=== PATIENT | male | born 1965 | race Two or more races ===

== ENCOUNTER → 2022-07-31 | Outpatient (CLI) | payer MEDICAID | END | disposition home or self-care (01) | LOC: Rad HDHVI 15:12 | PROVIDERS: ATTEND Internal Medicine Cardiovascular Disease | DX: I07.1 Rheumatic tricuspid insufficiency (principal); R06.02 Shortness of breath | CPT/HCPCS: 93306 ==

== ENCOUNTER → 2022-08-20 | Outpatient (CLI) | payer MEDICAID ==
[~2022-08-20] VITALS: Ht 167.6 cm; Wt 86.2 kg
[~2022-08-20] MED LIST: ADENOSINE 72 MG in GIVE UN-DILUTED 0 ML IV ONE; ADENOSINE 90 MG/30 ML INJ IV ONE
== END | disposition home or self-care (01) ==
LOC: Rad HDHVI 13:14
PROVIDERS: ATTEND Internal Medicine Cardiovascular Disease
DX: I11.0 Hypertensive heart disease with heart failure (principal); I50.43 Acute on chronic combined systolic (congestive) and diastolic (congestive) heart failure; I48.0 Paroxysmal atrial fibrillation; R06.02 Shortness of breath
CPT/HCPCS: 78452; 93005; 96374; 96375; A9500; J0153

== ENCOUNTER → 2024-02-03 | Outpatient (CLI) | payer MEDICAID ==
[~2024-02-03] MED LIST changes: -ADENOSINE 72 MG in GIVE UN-DILUTED 0 ML IV ONE; -ADENOSINE 90 MG/30 ML INJ IV ONE; +APIX5TAB PO; +CLOP75TA28 PO; +FURO40TA4 PO; +LOSA-533 PO; +METO25TA93 PO; +OMEG1400 PO; +SPIR25TA8 PO
[2024-02-03 12:30] VITALS: BP 151/88; PULSE 82; RESP 16; O2SAT 99
[2024-02-03 12:41] VITALS: BP 138/90; PULSE 113; RESP 16; O2SAT 99
== END | disposition home or self-care (01) ==
LOC: Rad HDHVI 12:02
PROVIDERS: ATTEND Internal Medicine Cardiovascular Disease
DX: Z01.818 Encounter for other preprocedural examination (principal); R07.89 Other chest pain; I48.91 Unspecified atrial fibrillation; R94.31 Abnormal electrocardiogram [ECG] [EKG]
CPT/HCPCS: 71046; 93005; G0463

== ENCOUNTER 2024-02-06 07:28 | Day surgery (SDC) | payer MEDICAID ==
[2024-02-03 14:49] LABS: Basophils # (auto) 0.1 10 ^3/uL (0-0.2); Basophils % (auto) 0.6 % (0.0-2.0); Eosinophils # (auto) 0.3 10 ^3/uL (0-0.8); Eosinophils % (auto) 2.7 % (0.0-7.0); Hemoglobin 14.4 g/dL (13.5-17.5); Lymphocytes # (auto) 2.6 10 ^3/uL (0.4-5.4); Lymphocytes % (auto) 21.4 % (10.0-50.0); Mean Corpuscular Hemoglobin 32.8 pg (28.0-32.0); Mean Corpuscular Hgb Conc. 34.2 g/dL (32.0-36.0); Monocytes # (auto) 0.8 10 ^3/uL (0-1.3); Monocytes % (auto) 6.8 % (0.0-12.0); Neutrophils # (auto) 8.4 10 ^3/uL (1.6-8.6); Neutrophils % (auto) 68.5 % (37.0-80.0); Platelet Count (auto) 275 10^3/uL (140-450); Red Blood Cells 4.38 10^6/uL (4.5-5.90); White Blood Cell 12.2 10^3/uL (4.4-10.8)
[2024-02-03 15:13] LABS: Anion Gap 4 (5-15); Carbon Dioxide 29 mmol/L (20-30); Chloride 106 mmol/L (98-107); Potassium 3.8 mmol/L (3.5-5.1); Sodium 139 mmol/L (136-145)
[2024-02-03 15:14] LABS: Calcium 9.9 mg/dL (8.7-10.4)
[2024-02-03 15:19] LABS: BUN/Creatinine Ratio 8.4 (10.0-20.0); Blood Urea Nitrogen 10 mg/dL (9-23); Glucose 105 mg/dL (74-106)
[2024-02-03 15:33] LABS: INR 1.06 (0.9-1.15); Partial Thromboplastin Time 28.8 SEC (24.5-34.5); Prothrombin Time 11.2 sec (9.3-11.8)
[~2024-02-06] VITALS: Ht 167.6 cm; Wt 77.1 kg
[2024-02-06] MEDS ORDERED: IOHEXOL 350 MG/ML 100ML IJ ONE ×2 (07:43→10:29)
[2024-02-06] MEDS ORDERED: HEPARIN IN NS 1000Units/500mL 1,500 ML ONE (07:43)
[2024-02-06] MEDS ORDERED: LIDOCAINE 2%HCL (LOCAL ANESTH.) INJ 20ML MDV ONE (10:29)
[2024-02-06] MEDS ORDERED: fentaNYL CITRATE 100 MCG/2 ML VL ONE (10:31)
[2024-02-06] MEDS ORDERED: ANGIOMAX 250 MG VIAL IV ONE (10:31)
[2024-02-06] MEDS ORDERED: MIDAZOLAM HCL 2MG/2ML 2ml VIAL (1mg/ml) ONE (10:32)
[2024-02-06] MEDS ORDERED: SODIUM CHL 0.9% 0 ML ONE (10:32)
== END 2024-02-06 13:30 | disposition home or self-care (01) ==
LOC: CATH 07:28
PROVIDERS: ATTEND Internal Medicine Cardiovascular Disease
DX: I42.0 Dilated cardiomyopathy (principal); I48.91 Unspecified atrial fibrillation; R00.0 Tachycardia, unspecified; I11.0 Hypertensive heart disease with heart failure; I50.22 Chronic systolic (congestive) heart failure; I25.2 Old myocardial infarction; Z79.899 Other long term (current) drug therapy; Z87.891 Personal history of nicotine dependence
CPT/HCPCS: 36415; 80048; 85025; 85610; 85730; 93458; C1894; J1644; J2250; J3010; Q9967; 99152

== ENCOUNTER → 2024-03-17 | Outpatient (CLI) | payer MEDICAID | END | disposition home or self-care (01) | LOC: Rad HDHVI 08:15 | PROVIDERS: ATTEND Internal Medicine Cardiovascular Disease | DX: R00.2 Palpitations (principal); I50.23 Acute on chronic systolic (congestive) heart failure | CPT/HCPCS: 93306 ==

== ENCOUNTER 2024-04-16 07:20 | Inpatient (IN) | payer MEDICAID ==
[2024-04-14 15:23] LABS: Basophils # (auto) 0.1 10 ^3/uL (0-0.2); Basophils % (auto) 0.5 % (0.0-2.0); Eosinophils # (auto) 0.2 10 ^3/uL (0-0.8); Eosinophils % (auto) 1.9 % (0.0-7.0); Hematocrit 43.6 % (41.0-53.0); Hemoglobin 14.9 g/dL (13.5-17.5); Lymphocytes # (auto) 3.3 10 ^3/uL (0.4-5.4); Lymphocytes % (auto) 25.5 % (10.0-50.0); Mean Corpuscular Hemoglobin 32.3 pg (28.0-32.0); Mean Corpuscular Hgb Conc. 34.1 g/dL (32.0-36.0); Mean Corpuscular Volume 94.6 fL (80.0-100.0); Monocytes # (auto) 0.8 10 ^3/uL (0-1.3); Monocytes % (auto) 6.1 % (0.0-12.0); Neutrophils # (auto) 8.4 10 ^3/uL (1.6-8.6); Nucleated Red Blood Cells % 1.1 %; Platelet Count (auto) 270 10^3/uL (140-450); Red Blood Cells 4.61 10^6/uL (4.5-5.90); White Blood Cell 12.8 10^3/uL (4.4-10.8)
[2024-04-14 15:51] LABS: Chloride 106 mmol/L (98-107); INR 1.07 (0.9-1.15); Partial Thromboplastin Time 26.7 SEC (24.5-34.5); Potassium 3.8 mmol/L (3.5-5.1); Prothrombin Time 11.3 sec (9.3-11.8); Sodium 144 mmol/L (136-145)
[2024-04-14 15:52] LABS: Anion Gap 5 (5-15); Calcium 9.9 mg/dL (8.7-10.4); Carbon Dioxide 33 mmol/L (20-31)
[2024-04-14 15:57] LABS: BUN/Creatinine Ratio 9.8 (10.0-20.0); Blood Urea Nitrogen 12 mg/dL (9-23); Glucose 104 mg/dL (74-106)
[~2024-04-16] VITALS: Ht 165.1 cm; Wt 76.3 kg
[2024-04-16] VITALS (16 sets, daily range): BP systolic 112–152; BP diastolic 74–108; PULSE 69–135; RESP 14–23; TEMP 97.4–98.4; O2SAT 94–99
[~2024-04-16 07:20] MED LIST changes: -CLOP75TA28 PO; +FLAXOIL OR; -OMEG1400 PO
[2024-04-16] MEDS: MIDAZOLAM HCL 2MG/2ML 2ml VIAL (1mg/ml) ONE (09:16)
[2024-04-16] MEDS: fentaNYL CITRATE 100 MCG/2 ML VL ONE (09:16)
[2024-04-16] MEDS: VANCOMYCIN HCL 1000 MG VL ONE (09:16)
[2024-04-16] MEDS: LIDOCAINE 2%HCL (LOCAL ANESTH.) INJ 20ML MDV ONE ×2 (09:17→09:57)
[2024-04-16] MEDS: VANCOMYCIN 1GM/200ML PREMIX 200 ML IV ONE ×2 (09:17→21:11)
[2024-04-16] MEDS: HYDROmorphone HCL 2 MG/ML VL/or syr ONE (10:00)
[2024-04-16] MEDS: IOHEXOL 350 MG/ML 100ML IJ ONE (10:08)
[2024-04-16] MEDS: methylPREDNISolone SOD SUCC 125 MG/2 ML VL ONE (10:09)
[2024-04-16] MEDS: FAMOTIDINE (10MG/ML) 2ML VL IV ONE (10:09)
[2024-04-16] MEDS: diphenhdrAMINE HCL 50 MG/1 ML VL ONE (10:09)
[2024-04-16] MEDS: FUROSEMIDE 20 MG/2 ML VIAL ONE (10:54)
--- NOTE | 2024-04-16 11:51 | DVH ---
CHEST RADIOGRAPH Indication:S/P PACEMAKER Technique: Single frontal view of the chest was obtained COMPARISON: None FINDINGS: Lines and Tubes: Left chest wall AICD Lungs: Mild congestion Pleura: No effusion. No pneumothorax. Cardiomediastinal contours: Unremarkable Bones: Unremarkable IMPRESSION: Mild congestion
--- NOTE | 2024-04-16 12:36 | DVHOP ---
DATE OF SURGERY: 04/16/2024 PROCEDURES PERFORMED: * Bi-V AICD implantation. * Venography. * Coronary sinus angiography. * Conscious sedation. DESCRIPTION OF PROCEDURE: The patient was prepped and draped in sterile condition. 1% Xylocaine used to anesthetize the left subclavicular region. Venography was performed. Then, using a Cook needle, the left subclavian vein was engaged with Seldinger technique, a guidewire was then appropriately positioned. Similarly, a second guidewire then appropriately positioned. Using a 10 blade, linear incision was used using blunt dissection and electrocautery, pocket was then dissected out. Using a 10.5-Luxembourgish sheath and coronary sinus guide catheter, coronary sinus was cannulated. We had to use a stiff angled Terumo wire and a Terumo guide catheter to get through the valve at the opening of the coronary sinus. Following that, we were able to get the coronary sinus catheter deep into the coronary sinus, venography was performed. Then, using a ChoICE PT extra support wire, the coronary sinus vein was accessed in the lateral aspect of it. The coronary sinus lead was then appropriately positioned. Threshold parameters obtained, lead was secured to the chest wall using 0 Ethibond. Similarly using a 10.5-Luxembourgish sheath, the right ventricular active fixation lead then appropriately positioned. Threshold parameters obtained, lead was secured to the chest wall using 0 Ethibond. Using a 7-Luxembourgish peel-away sheath, the right atrial active fixation lead then appropriately positioned. Threshold parameters obtained, lead was secured to the chest wall using 0 Ethibond. Pocket was irrigated using vancomycin saline solution. Generator was implanted. Pocket was closed using 3-0 Monoderm subcutaneous sutures followed by 3-0 Monoderm subcuticular sutures. There were no complications. The patient tolerated the procedure well. The patient has MRI compatible Biotronik Bi-V AICD Acticor 7HF-T QP, model #896290, serial #[id number]. LV lead Sentus ProMRI OTW QP L-85-49, serial #[id number], model #078678. RV lead Pamira SD 65-18, model #957247, serial #[id number]. Atrial lead is Solia S45, model #788902, serial #[id number]. Threshold parameters atrium, P-wave amplitude AFib. P-wave amplitude of 2.3 millivolts, impedance of 480 ohms. Right ventricular lead, R-wave amplitude 23.2 millivolts, threshold of 0.5 volts at 0.4 milliseconds pulse duration, pacing impedance of 695 ohms, shock impedance of 39 ohms. LV lead, R-wave amplitude of 17.6 millivolts, threshold 1.9 volts at 0.4 milliseconds pulse at 1 millisecond pulse duration, pacing impedance of 1030 ohms. CONCLUSION: The patient has successful implantation of Biotronik MRI compatible Bi-V AICD. Horacio Dodson MD SA/ANAYA TID: [id number] RECEIPT: [id number]
[2024-04-16] MEDS ORDERED: NITROGLYCERIN 0.4 MG SL TAB SL PRN (15:00)
[2024-04-16] MEDS ORDERED: HYDROmorphone HCL 2 MG/ML VL/or syr IV PRN (15:00)
[2024-04-16] MEDS ORDERED: MORPHINE SULFATE INJ 2 MG/ml SYRG IV PRN (15:00)
[2024-04-16] MEDS: HYDROmorphone HCL 2 MG/ML VL/or syr IV ONE (15:07)
--- NOTE | 2024-04-16 15:32 | DVHDS ---
DATE OF DISCHARGE: 04/16/2024 DISCHARGE DIAGNOSES: The patient with dilated cardiomyopathy, now to undergo biventricular automatic implantable cardioverter defibrillator implantation with atrial fibrillation. HOSPITAL COURSE: The patient at this time underwent successful Bi-V AICD implantation with no complication. Chest x-ray was unremarkable. The patient may be discharged home. Follow up with me in 24 hours and follow up with me in 1 week. Stable at the time of discharge. DISPOSITION: Home. ACTIVITY: As instructed. DIET: Will be 2-gram sodium diet. Horacio Dodson MD SA/KIMBERLY TID: [id number] RECEIPT: [id number]
[2024-04-16] MEDS: METOPROLOL SUCCINATE XL 50 MG TAB PO ONE (15:56)
[2024-04-16] MEDS: ceFAZolin 1GM/50ML 50 ML IV SCH (22:43)
[2024-04-17] VITALS (8 sets, daily range): BP systolic 116–137; BP diastolic 73–91; PULSE 62–125; RESP 16–18; TEMP 97.4–98.3; O2SAT 93–99
--- NOTE | 2024-04-17 04:39 | DVH ---
CHEST RADIOGRAPH Indication:S/P ICD PLACEMENT Technique: Single frontal view of the chest was obtained Comparison: XY CHEST PORTABLE on DOS: 04/16/24 FINDINGS: Lines and Tubes: AICD/ pacemaker is unchanged. Lungs: No focal consolidation. Pleura: No effusion. No pneumothorax. Cardiomediastinal contours: Stable cardiomegaly. Bones: No acute osseous abnormality. IMPRESSION: 1. No acute cardiopulmonary disease.
[2024-04-17] MEDS ORDERED: PATIENTS OWN MEDICATION (Metoprolol Succinate (Metoprolol Succinate Er) 25 MG) PO SCH (10:00)
[2024-04-17] MEDS: SPIRONOLACTONE 25 MG TAB PO SCH (10:00)
[2024-04-17] MEDS: FUROSEMIDE 40 MG TAB PO SCH (10:01)
[2024-04-17] MEDS: LOSARTAN POTASSIUM 25 MG TAB PO SCH (10:02)
[2024-04-17] MEDS: METOPROLOL SUCCINATE XL 50 MG TAB PO SCH (10:03)
--- NOTE | 2024-04-23 08:35 | ECG ---
[facility] Test Date: 2024-04-16 Test Time: 11:22:59 Pat Name: CINDY ROE Department: Room: 0215T B Gender: M Location Analyst: Leona SAMUELS : 1965 Requested By: JEREL BRIDGES Order Number: [id number] Reading MD: Doreen Gabriel Measurements Intervals [place] Rate: 104 P: 0 W[place]: 0 QRS: -7 QRSD: 88 T: -10 QT: 376 QTc: 494 Interpretive Statements Demand pacemaker, interpretation is based on intrinsic rhythm Atrial fibrillation with rapid ventricular response with premature ventricular or aberrantly conducted complexes Electronically Signed On 04-23-2024 18:51:45 PST by Doreen Gabriel Please click the below link to view image of tracing.
== END 2024-04-17 18:46 | disposition home or self-care (01) | DRG 179 ==
LOC: CATH 07:20 → TELE 14:48 → TELE-CENTR 16:53
PROVIDERS: ADMIT Internal Medicine Cardiovascular Disease; ATTEND Internal Medicine Cardiovascular Disease
PROC: 0JH608Z Insertion of Defibrillator Generator into Chest Subcutaneous Tissue and Fascia, Open Approach (ICD-10-PCS; principal; 2024-04-16)
PROC: 02H63KZ Insertion of Defibrillator Lead into Right Atrium, Percutaneous Approach (ICD-10-PCS; 2024-04-16)
PROC: 02HL3KZ Insertion of Defibrillator Lead into Left Ventricle, Percutaneous Approach (ICD-10-PCS; 2024-04-16)
PROC: B517YZZ Fluoroscopy of Left Subclavian Vein using Other Contrast (ICD-10-PCS; 2024-04-16)
PROC: 02HK3KZ Insertion of Defibrillator Lead into Right Ventricle, Percutaneous Approach (ICD-10-PCS; 2024-04-16)
DX: I42.0 Dilated cardiomyopathy (principal); I48.91 Unspecified atrial fibrillation; Z79.899 Other long term (current) drug therapy
CPT/HCPCS: 33249; 36012; 36415; 71045; 80048; 85025; 85610; 85730; 93005; 99152; G0378; J2250; J3490

== ENCOUNTER → 2024-05-11 | Outpatient (CLI) | payer MEDICAID ==
--- NOTE | 2024-05-18 13:50 | DVHSR ---
APPROVED REPORT EXAM: Two-dimensional and M-mode echocardiogram with Doppler and color Doppler. DIMENSIONS LVDd4.8 (3.8-5.7cm)LA (2D)5.0 (1.9-4.0cm)Aortic Root3.2 (2.0-3.7cm) LVDs3.2 (2.5-4.0cm)LA (MM) (1.9-4.0cm)Aortic Cusp Exc1.8 (1.5-2.0cm) EF (%) 60.9 (55-70%)Rt. Atrium3.9 (1.9-4.0cm)Asc. Aorta cm IVSd1.1 (0.7-1.1cm)RV (D)3.7 (1.8-2.4cm) PWd1.2 (0.7-1.1cm) Mitral Valve MitralMitral Stenosis E wave0.79m/sMV Mean GR.mmHg A wave0.33m/sMV Peak GR.mmHg E/A ratio2.42D MVAcm2 DECEL [id number] 1/2 Timems Aortic Valve Aortic ValveAortic Stenosis V10.69m/Hair Mean GR.1mmHg V20.76m/Hair Peak GR.2mmHg Pulmonic Valve V20.59m/s Tricuspid Valve TR Velocity2.52m/s [id number] LEFT VENTRICLE The Ejection Fraction is >55%. ATRIA The left atrium is dilated. The right atrium size is normal. MITRAL VALVE The mitral valve is normal in structure and function. Mitral regurgitation is trace to mild. PULMONIC VALVE The pulmonic valve is not well visualized. TRICUSPID VALVE The tricuspid valve is grossly normal. There is mild tricuspid regurgitation. AORTIC VALVE The aortic valve opens well. No aortic regurgitation is present. GREAT VESSELS The aortic root is normal size. PERICARDIAL EFFUSION There is no pericardial effusion. Conclusion EF >55% LAE LVH
== END | disposition home or self-care (01) ==
LOC: Rad HDHVI 12:57
PROVIDERS: ATTEND Internal Medicine Cardiovascular Disease
DX: I08.1 Rheumatic disorders of both mitral and tricuspid valves (principal); I50.43 Acute on chronic combined systolic (congestive) and diastolic (congestive) heart failure
CPT/HCPCS: 93306

== ENCOUNTER 2024-07-13 21:42 | Inpatient (IN) | payer MEDICAID ==
[~2024-07-13] VITALS: Ht 165.1 cm; Wt 80.8 kg
[~2024-07-13 21:42] MED LIST changes: +METO-289 PO
[2024-07-13 23:31] LABS: Basophils # (auto) 0.1 10 ^3/uL (0-0.2); Basophils % (auto) 0.5 % (0.0-2.0); Eosinophils # (auto) 0.2 10 ^3/uL (0-0.8); Eosinophils % (auto) 1.4 % (0.0-7.0); Hematocrit 48.7 % (41.0-53.0); Hemoglobin 16.7 g/dL (13.5-17.5); Lymphocytes # (auto) 2.7 10 ^3/uL (0.4-5.4); Lymphocytes % (auto) 16.7 % (10.0-50.0); Mean Corpuscular Hemoglobin 32.1 pg (28.0-32.0); Mean Corpuscular Hgb Conc. 34.2 g/dL (32.0-36.0); Mean Corpuscular Volume 93.7 fL (80.0-100.0); Monocytes # (auto) 0.8 10 ^3/uL (0-1.3); Monocytes % (auto) 5.1 % (0.0-12.0); Neutrophils # (auto) 12.2 10 ^3/uL (1.6-8.6); Neutrophils % (auto) 76.3 % (37.0-80.0); Nucleated Red Blood Cells % 0.1 %; Platelet Count (auto) 257 10^3/uL (140-450); Red Cell Distribution Width 14.1 % (11.8-14.3)
[2024-07-13 23:41] LABS: Chloride 103 mmol/L (98-107); Potassium 4.6 mmol/L (3.5-5.1); Sodium 140 mmol/L (136-145)
[2024-07-13 23:42] LABS: Anion Gap 6 (5-15)
[2024-07-13 23:43] LABS: Calcium 10.3 mg/dL (8.7-10.4)
--- NOTE | 2024-07-13 23:47 | DVH ---
CHEST RADIOGRAPH Indication: SOB Technique: Single frontal view of the chest was obtained COMPARISON: XY CHEST PORTABLE on DOS: 04/17/24, XY CHEST PORTABLE on DOS: 04/16/24 FINDINGS: Lines and Tubes: Left-sided pacemaker/ AICD in place Lungs: Clear Pleura: No effusion. No pneumothorax. Cardiomediastinal contours: Unremarkable Bones: Unremarkable IMPRESSION: 1. No acute disease.
[2024-07-13 23:48] LABS: BUN/Creatinine Ratio 10.7 (10.0-20.0); Blood Urea Nitrogen 16 mg/dL (9-23); Carbon Dioxide 31 mmol/L (20-31); Glucose 120 mg/dL (74-106)
--- NOTE | 2024-07-14 01:00 | ED.PDOC ---
History of Present Illness HPI Comments 59 y/o M, with a Hx of AFIB w/eliquis use, angina, dilated cardiomyopathy, and BI-V AICD implant, venography, and coronary sinus angiography, presents with c/o left foot pain and redness for 2x days, today. Patient endorses on unprovoked onset of symptoms that have progressively worsening since. He comments on pain extending to all five digits on his left foot and having no relief or improvement with [id number] "CBD ointment" use. Patient reports no recent injuries along with any additional relevant or pertinent information at time of assessment. He denies having any chest pain, shortness of breath, numbness, tingling, weakness, fever, chills, or other associated symptoms or modifiers at this time. Chief Complaint: Lower Extremity Time Seen by MD: 00:30 Reviewed Notes: Nurses Notes, Medications, Allergies Allergies: Coded Allergies: Acetaminophen (Verified Allergy, Unknown, Hears Echos, 04/14/24) Hydrocodone (Verified Allergy, Unknown, Hears Echos, 04/14/24) Iodine (Verified Allergy, Unknown, swelling, 04/14/24) Home Meds Reported Medications Flaxseed (Linseed) (Flax Oil) Oil, 1 OR DAILY, EA 04/14/24 Metoprolol Succinate (Metoprolol Succinate Er) 25 Mg Tab, 25 MG PO DAILY for 30 Days, MG 02/03/24 Spironolactone (Spironolactone) 25 Mg Tab, 1 TAB PO DAILY, #90 TAB 1 Refill 02/03/24 Furosemide (Furosemide) 40 Mg Tab, 40 MG PO DAILY 02/03/24 Losartan Potassium (Losartan Potassium) 25 Mg Tab, 25 MG PO DAILY for 30 Days, MG 02/03/24 Apixaban Base (ELIQUIS) 5 Mg Tab, 5 MG PO DAILY for prevent blood clots, TAB 02/03/24 Information Source: Patient Mode of Arrival: Wheelchair Severity: Moderate Timing: Days Duration: Since onset Prehospital treatment: None Past Medical History PAST MEDICAL HISTORY: AFIB, Angina Past Medical History (Other): Eliquis use, dilated cardiomyopathy Surgical History: Pacemaker Surgical History (Other): Bi-V AICD implant, venography, coronary sinus angiography Family History Family History: Unknown Social History Smoker: Non-Smoker Alcohol: Denies ETOH Use Drugs: Denies Drug Use Lives In: Home Musculoskeletal: reports: others (left foot pain ) Integumetry: reports: change in color (left foot redness ) All Other Systems: Reviewed and Negative (negative unless otherwise stated above or in HPI) Physical Exam General Appearance: No Apparent Distress, Normal HEENT: Normal ENT Inspection, Pharynx Normal, TMs Normal Neck: Full Range of Motion, Non-Tender, Normal, Normal Inspection Respiratory: Chest Non-Tender, Lungs Clear, No Accessory Muscle Use, No Respiratory Distress, Normal Breath Sounds Cardiovascular: No Edema, No JVD, No Murmur, No Gallop, Normal Peripheral Pulses, Regular Rate/Rhythm Breast Exam: Deferred Gastrointestinal: No Organomegaly, Non Tender, No Pulsatile Mass, Normal Bowel Sounds, Soft Genitalia: Deferred Pelvic: Deferred Rectal: Deferred Extremities: No calf tenderness, Normal capillary refill, Normal range of motion, No pedal edema, Tender (left foot ) Musculoskeletal : Apperance: Normal Neurologic: Alert, financial services specialist II-XII nml as Tested, No Motor Deficits, Normal Affect, Normal Mood, No Sensory Deficits Cerebellar Function: Normal Reflexes: Normal Skin: Dry, Normal Color, Warm, Other (warmth and erythema to left foot ) Lymphatic: No Adenopathy Was a procedure done? Was a procedure done?: No Differential Dx Considerations may include: cellulitis, dermatitis, skin-contact exposure X-Ray, Labs, Meds, VS Vital Signs Date Time Temp Pulse Resp B/P (MAP) Pulse Ox O2 Delivery O2 Flow Rate FiO2 07/13/24 22:12 97.7 57 20 144/95 (111) 95 Lab Test 07/14/24 01:16 07/14/24 00:30 07/13/24 23:14 Range/Units Lactic Acid Level Pending Troponin I High Sensitivity 6 6 </=54 ng/L White Blood Count 16.0 H 4.4-10.8 10^3/uL Red Blood Count 5.20 4.5-5.90 10^6/uL Hemoglobin 16.7 13.5-17.5 g/dL Hematocrit 48.7 41.0-53.0 % Mean Corpuscular Volume 93.7 80.0-100.0 fL Mean Corpuscular Hemoglobin 32.1 H 28.0-32.0 pg Mean Corpuscular Hemoglobin Concent 34.2 32.0-36.0 g/dL Red Cell Distribution Width 14.1 11.8-14.3 % Platelet Count 257 140-450 10^3/uL Mean Platelet Volume 8.4 6.9-10.8 fL Neutrophils (%) (Auto) 76.3 37.0-80.0 % Lymphocytes (%) (Auto) 16.7 10.0-50.0 % Monocytes (%) (Auto) 5.1 0.0-12.0 % Eosinophils (%) (Auto) 1.4 0.0-7.0 % Basophils (%) (Auto) 0.5 0.0-2.0 % Neutrophils # (Auto) 12.2 H 1.6-8.6 10 ^3/uL Lymphocytes # (Auto) 2.7 0.4-5.4 10 ^3/uL Monocytes # (Auto) 0.8 0-1.3 10 ^3/uL Eosinophils # (Auto) 0.2 0-0.8 10 ^3/uL Basophils # (Auto) 0.1 0-0.2 10 ^3/uL Nucleated Red Blood Cells 0.1 % Sodium Level 140 136-145 mmol/L Potassium Level 4.6 3.5-5.1 mmol/L Chloride Level 103 98-107 mmol/L Carbon Dioxide Level 31 20-31 mmol/L Anion Gap 6 5-15 Blood Urea Nitrogen 16 9-23 mg/dL Creatinine 1.49 H 0.700-1.30 mg/dL Glomerular Filtration Rate Calc 54 >90 mL/min BUN/Creatinine Ratio 10.7 10.0-20.0 Serum Glucose 120 H 74-106 mg/dL Calcium Level 10.3 8.7-10.4 mg/dL B-Type Natriuretic Peptide 295.42 0-100 pg/mL Time of 1ST Reevaluation: 01:00 Reevaluation 1ST: Unchanged Patient Education/Counseling: Diagnosis, Treatment Family Education/Counseling: No Family Present Additional Information I reviewed the following notes from patient's past medical encounters: admission discharge summary report on 04/17/24 The following tests were ordered, and results were reviewed by me: lactic acid, CBC, BMP, BNP, blood culture, troponin, L-foot and chest X-ray I reviewed and agreed with the following test results read by other providers: L-foot and chest X-ray I discussed treatment and results with medical personnel Departure 1 Departure Time of Disposition: 01:38 (Patient with cellulitis of his left lower extremity. We will empirically cover patient with antibiotics admit patient for further workup) Impression: Primary Impression: Left leg cellulitis Disposition: ADMITTED INPATIENT Admit to: Med Surg Condition: Serious Critical Care Note Critical Care Time?: No Stability Stability form required: No Heart Score Heart Score: Heart Score Response (Comments) Value History N/A 0 EKG N/A 0 Age N/A 0 Risk Factors N/A 0 Troponin N/A 0 Total 0 I personally scribed for JAMES CRISTOBAL MD ([email or web address]) on 07/14/24 at 01:00. Electronically submitted by Heladio Lane ([email or web address]). JAMES CRISTOBAL MD Jul 14, 2024 01:00
[2024-07-14] MEDS: VANCOMYCIN 1GM/250ML KIT 200 ML IV ONE (01:30)
[2024-07-14 01:42] VITALS: PULSE 120; RESP 20; O2SAT 97
[2024-07-14 02:00] VITALS: O2SAT 97
--- NOTE | 2024-07-14 03:02 | DVH ---
XY L FOOT 3 VIEW XRAY, INDICATION: left foot pain TECHNICAL DATA: Frontal, oblique and lateral views were obtained of the left foot. COMPARISON: None IMPRESSION: No acute fracture or dislocation. There is stable mild cortical erosion along the 2nd digit distal ph alanx with irregularity of the middle phalanx distal aspect as well. No soft tissue gas. Findings ma y represent osteomyelitis. Correlation for site of concern is recommended.
[2024-07-14] MEDS: CEFEPIME 2GM/50ML NS 50 ML IV ONE (04:02)
[2024-07-14] MEDS ORDERED: VANCOMYCIN PER PHARMACY 0 MG IV SCH (04:15)
--- NOTE | 2024-07-14 05:02 | DVHHP2 ---
History of Present Illness Reason for Visit: Left foot swelling History of Present Illness 59-year-old male presents for evaluation of left foot swelling. Patient reports a three day history of left foot swelling with pain that starts at the toes and radiates upward. Denies any trauma to the area. Reports foot being warmth to the touch and tender to palpation. No other acute complaints reported. Past Medical History CHF, AFib, hypertension Past Surgical History AICD Family History Noncontributory Smoke: No ALCOHOL: none Drugs: None Review of Systems Review of Systems Review of systems are currently negative otherwise addressed in HPI. Allergies: Coded Allergies: Hydrocodone (Verified Allergy, Unknown, Hears Echos, 04/14/24) Iodine (Verified Allergy, Unknown, swelling, 04/14/24) Medications Current Medications Medications Dose Ordered Sig/Eusebio Route Start Time Stop Time Status Last Admin Dose Admin Furosemide 40 mg DAILY PO 07/14/24 10:00 Losartan Potassium 25 mg DAILY PO 07/14/24 10:00 Metoprolol Succinate 25 mg DAILY PO 07/14/24 10:00 Spironolactone 25 mg DAILY PO 07/14/24 10:00 Vancomycin HCl 0 ml @ 0 mls/hr UD IV 07/14/24 04:15 UNV Piperacillin Sod/ Tazobactam Sod 100 ml @ 25 mls/hr Q8HR IV 07/14/24 06:00 Morphine Sulfate 2 mg Q4HPRN PRN IV 07/14/24 04:15 UNV Tramadol HCl 50 mg Q6HP PRN PO 07/14/24 04:15 UNV Exam Vital Signs Vital Signs Date Time Temp Pulse Resp B/P (MAP) Pulse Ox O2 Delivery O2 Flow Rate FiO2 07/14/24 04:50 109 07/14/24 04:00 97.6 17 121/100 (107) 96 97.6 07/14/24 01:42 Room Air* 0 21 Exam Gen: 59-year-old male in mild distress. Skin: Warm, dry, vitiligo, no rash. HEENT: Normocephalic atraumatic, mucous membranes moist and pink. Neck: Cervical and supraclavicular nodes normal without enlargement, trachea is midline, thyroid gland is normal without masses. Pulmonary: Clear to auscultation and percussion bilaterally. Cardiac: Regular rate and rhythm. No murmur Abdomen: Soft, nontender, nondistended, bowel sounds present all 4 quadrants, no guarding, no rigidity, no organomegaly. Extremities: No cyanosis, clubbing, left foot with mild erythema and tenderness Neuro: Cranial nerves II through XII grossly intact, normal affect and speech, no focal motor deficits. Labs/Xrays ORDERING PHYSICIAN: JAMES CRISTOBAL MD PROCEDURE(s): CXRP - CHEST PORTABLE REASON: SOB ORDER NUMBER(s): [id number], ACCESSION NUMBER(s): [id number] CHEST RADIOGRAPH Indication: SOB Technique: Single frontal view of the chest was obtained COMPARISON: XY CHEST PORTABLE on DOS: 04/17/24, XY CHEST PORTABLE on DOS: 04/16/24 FINDINGS: Lines and Tubes: Left-sided pacemaker/ AICD in place Lungs: Clear Pleura: No effusion. No pneumothorax. Cardiomediastinal contours: Unremarkable Bones: Unremarkable IMPRESSION: 1. No acute disease. RING PHYSICIAN: JAMES CRISTOBAL MD PROCEDURE(s): CXRP - CHEST PORTABLE REASON: SOB ORDER NUMBER(s): [id number], ACCESSION NUMBER(s): [id number] CHEST RADIOGRAPH Indication: SOB Technique: Single frontal view of the chest was obtained COMPARISON: XY CHEST PORTABLE on DOS: 04/17/24, XY CHEST PORTABLE on DOS: 04/16/24 FINDINGS: Lines and Tubes: Left-sided pacemaker/ AICD in place Lungs: Clear Pleura: No effusion. No pneumothorax. Cardiomediastinal contours: Unremarkable Bones: Unremarkable IMPRESSION: 1. No acute disease. RING PHYSICIAN: JAMES CRISTOBAL MD PROCEDURE(s): LFOOT - L FOOT 3 VIEW XRAY REASON: left foot pain ORDER NUMBER(s): [id number], ACCESSION NUMBER(s): [id number] XY L FOOT 3 VIEW XRAY, INDICATION: left foot pain TECHNICAL DATA: Frontal, oblique and lateral views were obtained of the left f oot. COMPARISON: None IMPRESSION: No acute fracture or dislocation. There is stable mild cortical erosion along the 2nd digit distal phalanx with irregularity of the middle phalanx distal aspect as well. No soft tissue gas. Findings may represent osteomyelitis. Correlation for site of concern is recommended. Labs Test 07/14/24 01:16 07/14/24 00:30 07/13/24 23:14 Range/Units Lactic Acid Level 1.9 0.4-2.0 mmol/L Troponin I High Sensitivity 6 </=54 ng/L White Blood Count 16.0 H 4.4-10.8 10^3/uL Red Blood Count 5.20 4.5-5.90 10^6/uL Hemoglobin 16.7 13.5-17.5 g/dL Hematocrit 48.7 41.0-53.0 % Mean Corpuscular Volume 93.7 80.0-100.0 fL Mean Corpuscular Hemoglobin 32.1 H 28.0-32.0 pg Mean Corpuscular Hemoglobin Concent 34.2 32.0-36.0 g/dL Red Cell Distribution Width 14.1 11.8-14.3 % Platelet Count 257 140-450 10^3/uL Mean Platelet Volume 8.4 6.9-10.8 fL Neutrophils (%) (Auto) 76.3 37.0-80.0 % Lymphocytes (%) (Auto) 16.7 10.0-50.0 % Monocytes (%) (Auto) 5.1 0.0-12.0 % Eosinophils (%) (Auto) 1.4 0.0-7.0 % Basophils (%) (Auto) 0.5 0.0-2.0 % Neutrophils # (Auto) 12.2 H 1.6-8.6 10 ^3/uL Lymphocytes # (Auto) 2.7 0.4-5.4 10 ^3/uL Monocytes # (Auto) 0.8 0-1.3 10 ^3/uL Eosinophils # (Auto) 0.2 0-0.8 10 ^3/uL Basophils # (Auto) 0.1 0-0.2 10 ^3/uL Nucleated Red Blood Cells 0.1 % Sodium Level 140 136-145 mmol/L Potassium Level 4.6 3.5-5.1 mmol/L Chloride Level 103 98-107 mmol/L Carbon Dioxide Level 31 20-31 mmol/L Anion Gap 6 5-15 Blood Urea Nitrogen 16 9-23 mg/dL Creatinine 1.49 H 0.700-1.30 mg/dL Glomerular Filtration Rate Calc 54 >90 mL/min BUN/Creatinine Ratio 10.7 10.0-20.0 Serum Glucose 120 H 74-106 mg/dL Calcium Level 10.3 8.7-10.4 mg/dL B-Type Natriuretic Peptide 295.42 0-100 pg/mL Assessment/Plan Assessment/Plan Assessment Left foot osteomyelitis Leukocytosis Acute kidney injury Sirs History of AFib Secondary coagulopathy Plan Admit the patient to [facility] to the hospitalist Podiatry consultation Zosyn/vancomycin Resume home medications Continue treatment per orders. Plan discussed with: Patient My Orders Orders - CINDY MATHEW Procedure Category Date Status Time Furosemide Tablet PHA 07/14/24 In Process (Lasix Tablet) 10:00 Losartan Tablet PHA 07/14/24 In Process (Cozaar Tablet) 10:00 Metoprolol Xl PHA 07/14/24 In Process Succinate (Toprol Xl) 10:00 Spironolactone PHA 07/14/24 In Process (Aldactone) 10:00 Vancomycin Per PHA 07/14/24 Pending Pharmacy 04:15 Piperacillin-Tazob PHA 07/14/24 In Process 3.375gm (Zosyn 3.375g 06:00 *Podiatry Consult CONS 07/14/24 Transmitted Julianna/Pj 04:09 Basic Metabolic Panel LAB 07/15/24 Verified 04:00 Admit ADMIT 07/14/24 Transmitted 04:09 Cardiac DIET 07/14/24 Transmitted Diet-2gna,Lofat,Lochol Breakfast Condition: Stable BRENDAN 07/14/24 In Process 04:09 Morphine Sulfate PHA 07/14/24 Pending Injection 04:15 Complete Blood Count LAB 07/15/24 Verified 04:00 Tramadol Hcl (Ultram) PHA 07/14/24 Pending 04:15 Vancomycin 1gm/250ml PHA 07/14/24 In Process Kit 05:00 Date of Service: Jul 14, 2024 Billing Provider: CINDY MATHEW Common Visit Codes: [id number] INP/OBS CARE (HIGH) CINDY MATHEW Jul 14, 2024 05:02
[2024-07-14] MEDS: MORPHINE SULFATE INJ 2 MG/ml SYRG IV PRN (07:10)
[2024-07-14 07:30] VITALS: PULSE 136; RESP 20; O2SAT 97
[2024-07-14] MEDS: PIPERACILLIN-TAZOB 3.375GM 100 ML IV SCH (08:13)
[2024-07-14] MEDS: VANCOMYCIN 1GM/250ML KIT 250 ML IV ONE (08:13)
[2024-07-14] MEDS: LOSARTAN POTASSIUM 25 MG TAB PO SCH (08:35)
[2024-07-14] MEDS: FUROSEMIDE 40 MG TAB PO SCH (08:35)
[2024-07-14] MEDS: traMADol HCL 50 MG TAB PO PRN (08:36)
[2024-07-14] MEDS: SPIRONOLACTONE 25 MG TAB PO SCH (08:36)
[2024-07-14] MEDS: METOPROLOL SUCCINATE XL 50 MG TAB PO SCH (08:38)
[2024-07-14 09:00] LABS: INR 1.12 (0.9-1.15); Prothrombin Time 11.7 sec (9.3-11.8)
[2024-07-14 09:08] LABS: Albumin 4.3 g/dL (3.2-4.8); Alkaline Phosphatase 86 U/L (46-116); Anion Gap 6 (5-15); Aspartate Aminotransferase 35 U/L (13-40); BUN/Creatinine Ratio 10.2 (10.0-20.0); Calcium 9.8 mg/dL (8.7-10.4); Carbon Dioxide 28 mmol/L (20-31); Chloride 105 mmol/L (98-107); Sodium 139 mmol/L (136-145); Total Protein 7.1 g/dL (5.7-8.2)
[2024-07-14 09:09] LABS: Alanine Aminotransferase 24 U/L (7-40); Bilirubin, Total 1.5 mg/dL (0.2-1.0); Glucose 110 mg/dL (74-106); Potassium 4.9 mmol/L (3.5-5.1)
[2024-07-14 09:10] LABS: Blood Urea Nitrogen 14 mg/dL (9-23)
[2024-07-14 09:46] LABS: Urine Bacteria FEW /hpf (None Seen); Urine Blood Negative /uL (Negative); Urine Clarity Clear (Clear); Urine Color Yellow (Yellow); Urine Hyaline Cast FEW /lpf (0 - 2); Urine Mucus FEW (None Seen); Urine Protein, UAD Negative (Negative); Urine Specific Gravity 1.024 (1.001-1.035); Urine Squamous Epithelial Cell None Seen /hpf (<5); Urine Urobilinogen 2 mg/dL (Negative); Urine WBC < 1 /HPF (0-3); Urine pH 5.5 (5.0-9.0)
[2024-07-14 09:47] LABS: Cannabinoid Screen, Urine Pos (NEGATIVE)
[2024-07-14 09:51] LABS: Amphetamine Screen, Urine Pos (NEGATIVE); Barbiturate Scree,Urine Neg (NEGATIVE); Benzodiazephine Screen, Urine Neg (NEGATIVE); Cocaine Screen, Urine Neg (NEGATIVE); Opiate Scree,Urine Neg (NEGATIVE); Phencyclidine Screen, Urine Neg (NEGATIVE)
[2024-07-14] MEDS: APIXABAN 5 MG TAB PO SCH (10:41)
[2024-07-14] MEDS: METOPROLOL SUCCINATE XL 50 MG TAB PO ONE (10:42)
[2024-07-14 12:02] LABS: Basophils # (auto) 0.1 10 ^3/uL (0-0.2); Basophils % (auto) 0.6 % (0.0-2.0); Eosinophils # (auto) 0.2 10 ^3/uL (0-0.8); Eosinophils % (auto) 1.9 % (0.0-7.0); Hematocrit 48.1 % (41.0-53.0); Hemoglobin 16.6 g/dL (13.5-17.5); Lymphocytes # (auto) 2.8 10 ^3/uL (0.4-5.4); Lymphocytes % (auto) 23.4 % (10.0-50.0); Mean Corpuscular Hemoglobin 32.3 pg (28.0-32.0); Mean Corpuscular Hgb Conc. 34.5 g/dL (32.0-36.0); Mean Corpuscular Volume 93.6 fL (80.0-100.0); Monocytes # (auto) 0.8 10 ^3/uL (0-1.3); Monocytes % (auto) 6.5 % (0.0-12.0); Neutrophils % (auto) 67.6 % (37.0-80.0); Nucleated Red Blood Cells % 0.1 %; Platelet Count (auto) 236 10^3/uL (140-450); Red Blood Cells 5.13 10^6/uL (4.5-5.90); Red Cell Distribution Width 14.1 % (11.8-14.3); White Blood Cell 11.8 10^3/uL (4.4-10.8)
[2024-07-14] MEDS: SODIUM CHLORIDE 0.9% 500 ML IV ONE (14:33)
[2024-07-14] MEDS: amLODIPine BESYLATE 5 MG TAB PO ONE (14:33)
--- NOTE | 2024-07-14 15:25 | DVH ---
Bilateral lower extremity venous duplex Clinical History: rule out DVT Comparison: None Technique: Duplex Doppler evaluation of the deep venous systems of both lower extremities from the common femora l veins to the popliteal veins including color Doppler and spectral/pulsed waveform analysis was perf ormed. Findings: RIGHT SIDE: The common femoral vein demonstrates appropriate compressibility and waveform variability. There is compressibility/patency of the great saphenous vein at the proximal thigh. The femoral vein demonstrates appropriate compressibility and waveform variability. The deep femoral vein demonstrates appropriate compressibility and waveform variability. The popliteal vein demonstrates appropriate compressibility and waveform variability. There is normal compressibility at the tibioperoneal trunk. LEFT SIDE: The common femoral vein demonstrates appropriate compressibility and waveform variability. There is compressibility/patency of the great saphenous vein at the proximal thigh. The femoral vein demonstrates appropriate compressibility and waveform variability. The deep femoral vein demonstrates appropriate compressibility and waveform variability. The popliteal vein demonstrates appropriate compressibility and waveform variability. There is normal compressibility at the tibioperoneal trunk. Impression: No right or left femoropopliteal venous thrombosis.
--- NOTE | 2024-07-14 15:32 | DVH ---
LOWER EXTREMITY ARTERIAL DOPPLER EXAM CLINICAL HISTORY: suspected right PVD TECHNIQUE: Bilateral lower extremity arterial Doppler ultrasound evaluation. COMPARISON: None FINDINGS: There is elevated peak systolic velocity in the right common femoral artery measuring 345 centimeters /second. There are monophasic waveforms with decreased peak systolic velocities in the vessels distal to the right LEAD JAVA J2EE DEVELOPER. There are predominantly triphasic waveforms throughout the left lower extremity arteries. There is no focal vessel occlusion. The peak systolic velocities are within normal limits. IMPRESSION: 1. There is likely hemodynamically significant stenosis in the right common femoral artery with eleva joao peak systolic velocity. Distal to the LEAD J[employer] J[employer] DEVELOPER stenosis there are monophasic waveforms with decreased peak systolic velocities. Further evaluation with CT angiography is recommended. 2. There is no hemodynamically significant stenosis in the left lower extremity arteries HS:Y
--- NOTE | 2024-07-14 15:56 | DVHPNRES ---
Progress Note Date Seen: Jul 14, 2024 Resident Creating Document: QUITA MORROWARI RESIDENT Medical Necessity Reason Pt with a Central, PICC or Fol: No Subjective Review of Systems Patient is a 59-year-old male with a past with a history of atrial fibrillation, congestive heart failure, hypertension came to the ED with a chief complaint of bilateral feet pain and swelling. Patient reported that about 3 days ago he was apparently well when he went out in the pool with a to his friend's house walking with shows on hand when he came back to his house his feet were really cold, and he had pain in the toes but noted no discoloration. Patient tried to warm up the feet but he still had pain. The pain gradually increased to with the last 2 days and yesterday he came to the hospital further evaluation. Patient reports that before coming to the hospital left foot was swollen and red more than the right. Patient denied trauma, insect bites, walking barefoot in the cold. He reports similar episode he had bilateral feet pain in the cold about 2 years ago in the [place] which on its own. Patient denies any pain in the hands. Patient denies chest pain, shortness of breath, palpitations, headache, blurry vision, speech difficulty or eating difficulties, motor weakness. Past medical history: Atrial fibrillation, congestive heart failure, ?congenital heart disease, hypertension Past surgical history: Biventricular AICD in 2023, coronary angiography Social history: Patient lives at home but currently denied smoking, alcohol, drug use. Home medications: Metoprolol succinate q.d., furosemide 40 mg q.d., losartan 25 mg, spironolactone 25 mg, Eliquis 5 mg b.i.d. Review of systems At the time of examination patient reported pain in the right foot more at the midfoot to the tips of toes and on the plantar surface Also reports pain on the tips of the left foot toes. Right foot is red with a blanchable erythema Denies shortness of breath, chest pain, headache, palpitations. Objective vital signs Vital Sign Date Time Temp Pulse Resp B/P (MAP) Pulse Ox O2 Delivery O2 Flow Rate FiO2 07/14/24 14:33 128/77 07/14/24 14:00 125 18 96 07/14/24 07:30 Room Air* 0 21 07/14/24 07:30 98.2 98.2 Total Intake and Output 07/13/24 07/13/24 07/14/24 15:00 23:00 07:00 Intake Total 225.0 ml Balance 225.0 ml medications Current Medications Medications Dose Ordered Sig/Eusebio Route Start Time Stop Time Status Last Admin Dose Admin Furosemide 40 mg DAILY PO 07/14/24 10:00 07/14/24 08:35 40 MG Losartan Potassium 25 mg DAILY PO 07/14/24 10:00 07/14/24 08:35 25 MG Metoprolol Succinate 25 mg DAILY PO 07/14/24 10:00 07/14/24 08:38 25 MG Spironolactone 25 mg DAILY PO 07/14/24 10:00 07/14/24 08:36 25 MG Morphine Sulfate 2 mg Q4HPRN PRN IV 07/14/24 04:15 07/14/24 07:10 2 MG Tramadol HCl 50 mg Q6HP PRN PO 07/14/24 04:15 07/14/24 08:36 50 MG Apixaban 5 mg BID PO 07/14/24 10:00 07/14/24 10:41 5 MG Examination Physical Examination Constitution: Patient was alert and oriented to time, place and person and does not appear to be in acute distress. Gen - no pallor, no icterus, no cyanosis, no clubbing, no LAD, no edema . Skin - Patients skin is warm and dry. vitiligo seen on arms, face HEENT - normocephalic, atraumatic, moist mucous membranes. Neck - full ROM, no LAD, JVP waveform is not seen. Pulmonary - B/L vesicular breath sounds. no crackles , no wheezing cardiovascular - normal S1,S2 heard. no murmurs heard. peripheral pulses normal radial 2+, left dorsalis pedis 2+, right dorsalis pedis could not be palpated, capillary refill less than 2 seconds GI - soft abdomen without tenderness to palpation. no hepatospleenomegaly. Bowel sounds normoactive Neurological - Bilateral upper extremity strength 5/5, bilateral lower extremity strength 5/5, no facial droop, normal speech, no tremor, no sensory deficiets. extremeties- right foot from the ankle to the tip of the toes has blanchable redness. tip of the toes are tender with non suppurative blackish lesion seen at the tip of right 3rd toe laboratory and microbiology Laboratory Tests 07/14/24 11:10 07/14/24 08:28 Test 07/14/24 08:28 Range/Units Serum Glucose 110 H 74-106 mg/dL Problem List/Assessment/Plan Problem List/Assessment/Plan Assessment Right foot pain likely d/t PAD ?Frostbite ? Raynaud phenomenon cellultitis unlikely - bilateral lower extremity arterial Doppler shows hemodynamically significant stenosis in the right common femoral artery with elevated peak systolic velocity. 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 - CT angio pending - vascular surgery consulted - KUSUM ordered Atrial fibrillation Continued on Eliquis 5 mg b.i.d. Metoprolol succinate 50 mg q.d. Heart failure with preserved ejection fraction, no exacerbation Metoprolol 50 mg q.d. Losartan 25 mg q.d. Spironolactone 25 mg q.d. Furosemide 40 mg p.o. q.d. ROD on CKD likely hemodynamically mediated d/t VMN - given NS 500 bolus - monitor BMP Polysubstance abuse - urine drug screen positive for amphetamine and cannabis - counseled on drug cessation for more than 15 minutes Goals of care discussed with the patient for over 25 minutes. Full code Plan discussed with Dr. Haddad Plan discussed with: Patient My Orders My Orders Orders - MALLORY MORROW RESIDENT Procedure Category Date Status Time Apixaban (Eliquis) PHA 07/14/24 In Process 10:00 Kusum; Comprehensive LAB 07/14/24 Logged Panel 14:19 Sodium Chloride 0.9% PHA 07/14/24 In Process 14:30 Bilat Lower Dvt US 07/14/24 Resulted 14:19 Bilat Low Ext Art US 07/14/24 Taken Duplex 14:19 Date of Service: Jul 14, 2024 Billing Provider: EYNI HADDAD MD Common Visit Codes: [id number] INP/OBS CARE(HIGH) MALLORY MORROW RESIDENT Jul 14, 2024 15:56 YENI HADDAD MD Jul 15, 2024 16:46
[2024-07-14 15:59] VITALS: BP 118/67; PULSE 85; RESP 18; TEMP 98.7; O2SAT 92
--- NOTE | 2024-07-14 16:14 | DVHINCON2 ---
Date Seen: Jul 14, 2024 Reason for Consultation left foot swelling History of Present Illness 59-year-old male presents for evaluation of left foot swelling. Patient reports a three day history of left foot swelling with pain that starts at the toes and radiates upward. Denies any trauma to the area. Reports foot being warmth to the touch and tender to palpation. No other acute complaints reported. Past Medical History See H&P Past Surgical History See H&P Family History: FH: COPD (chronic obstructive pulmonary disease) FH: COPD (chronic obstructive pulmonary disease) Hypertension G8 MOTHER G8 FATHER Allergies: Coded Allergies: Iodine (Verified Allergy, Unknown, swelling, 04/14/24) Home Meds Reported Medications Flaxseed (Linseed) (Flax Oil) Oil, 1 OR DAILY, EA 04/14/24 Metoprolol Succinate (Metoprolol Succinate Er) 25 Mg Tab, 25 MG PO DAILY for 30 Days, MG 02/03/24 Spironolactone (Spironolactone) 25 Mg Tab, 1 TAB PO DAILY, #90 TAB 1 Refill 02/03/24 Furosemide (Furosemide) 40 Mg Tab, 40 MG PO DAILY 02/03/24 Losartan Potassium (Losartan Potassium) 25 Mg Tab, 25 MG PO DAILY for 30 Days, MG 02/03/24 Apixaban Base (ELIQUIS) 5 Mg Tab, 5 MG PO DAILY for prevent blood clots, TAB 02/03/24 Current Medications Current Medications Medications (Trade) Dose Ordered Sig/Eusebio Route PRN Reason Start Time Stop Time Status Last Admin Furosemide (Lasix Tablet) 40 mg DAILY PO 07/14/24 10:00 07/14/24 08:35 Losartan Potassium (Cozaar Tablet) 25 mg DAILY PO 07/14/24 10:00 07/14/24 08:35 Metoprolol Succinate (Toprol Xl) 25 mg DAILY PO 07/14/24 10:00 07/14/24 08:38 Spironolactone (Aldactone) 25 mg DAILY PO 07/14/24 10:00 07/14/24 08:36 Vancomycin HCl 0 ml @ 0 mls/hr UD IV 07/14/24 04:15 07/14/24 14:25 DC Piperacillin Sod/ Tazobactam Sod 100 ml @ 25 mls/hr Q8HR IV 07/14/24 06:00 07/14/24 14:25 DC 07/14/24 08:13 Morphine Sulfate 2 mg Q4HPRN PRN IV SEVERE PAIN (7-10 PAIN SCALE) 07/14/24 04:15 07/14/24 07:10 Tramadol HCl (Ultram) 50 mg Q6HP PRN PO MILD PAIN (1-3 PAIN SCALE) 07/14/24 04:15 07/14/24 08:36 Apixaban (Eliquis) 5 mg BID PO 07/14/24 10:00 07/14/24 10:41 Vital Signs Vital Signs Date Time Temp Pulse Resp B/P (MAP) Pulse Ox O2 Delivery O2 Flow Rate FiO2 07/14/24 14:33 128/77 07/14/24 14:00 125 18 96 07/14/24 07:30 Room Air* 0 21 07/14/24 07:30 98.2 98.2 Physical Exam DERMATOLOGIC EXAM: - Nails 1-5 of the bilateral foot are thickened, discolored, dystrophic, and tender to palpate with subungual debris - No open lesions or wounds noted bilaterally - No hyperkeratotic lesions noted bilaterally. - Hair loss noted to bilateral feet - Skin is shiny and thin bilateral feet VASCULAR EXAM: - DP and PT pulses are palpable bilaterally. 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 - Feet are cool to touch compared to lower legs bilaterally. - 1+ edema noted to the leg, foot, and ankle bilaterally. NEUROLOGIC EXAM: - Normal light touch sensation to the superficial peroneal, deep peroneal, sural, saphenous, and tibial nerve branches. - Protective sensation is diminished as tested with a 5.07 10g Brohman-Del Monofilament bilaterally. - Vibratory sensation absent to medial 1st MPJ bilaterally MUSCULOSKELETAL EXAM: - No gross deformities - Muscle strength is 5/5 and active motion is pain-free and symmetrical bilaterally - No pain or crepitation with passive range of motion bilaterally to all major pedal joints Labs/Diagnostic Data Labs Test 07/14/24 15:13 07/14/24 11:10 07/14/24 08:28 07/14/24 05:12 Range/Units White Blood Count 11.8 #H 4.4-10.8 10^3/uL Red Blood Count 5.13 4.5-5.90 10^6/uL Hemoglobin 16.6 13.5-17.5 g/dL Hematocrit 48.1 41.0-53.0 % Mean Corpuscular Volume 93.6 80.0-100.0 fL Mean Corpuscular Hemoglobin 32.3 H 28.0-32.0 pg Mean Corpuscular Hemoglobin Concent 34.5 32.0-36.0 g/dL Red Cell Distribution Width 14.1 11.8-14.3 % Platelet Count 236 140-450 10^3/uL Mean Platelet Volume 8.8 6.9-10.8 fL Neutrophils (%) (Auto) 67.6 37.0-80.0 % Lymphocytes (%) (Auto) 23.4 10.0-50.0 % Monocytes (%) (Auto) 6.5 0.0-12.0 % Eosinophils (%) (Auto) 1.9 0.0-7.0 % Basophils (%) (Auto) 0.6 0.0-2.0 % Neutrophils # (Auto) 8.0 1.6-8.6 10 ^3/uL Lymphocytes # (Auto) 2.8 0.4-5.4 10 ^3/uL Monocytes # (Auto) 0.8 0-1.3 10 ^3/uL Eosinophils # (Auto) 0.2 0-0.8 10 ^3/uL Basophils # (Auto) 0.1 0-0.2 10 ^3/uL Nucleated Red Blood Cells 0.1 % Prothrombin Time 11.7 9.3-11.8 sec Prothrombin Time INR 1.12 0.9-1.15 Activated Partial Thromboplast Time 29.0 24.5-34.5 SEC Sodium Level 139 136-145 mmol/L Potassium Level 4.9 3.5-5.1 mmol/L Chloride Level 105 98-107 mmol/L Carbon Dioxide Level 28 20-31 mmol/L Anion Gap 6 5-15 Blood Urea Nitrogen 14 9-23 mg/dL Creatinine 1.37 H 0.700-1.30 mg/dL Glomerular Filtration Rate Calc 59 >90 mL/min BUN/Creatinine Ratio 10.2 10.0-20.0 Serum Glucose 110 H 74-106 mg/dL Calcium Level 9.8 8.7-10.4 mg/dL Total Bilirubin 1.5 H 0.2-1.0 mg/dL Aspartate Amino Transferase (AST) 35 13-40 U/L Alanine Aminotransferase (ALT) 24 7-40 U/L Alkaline Phosphatase 86 46-116 U/L Total Protein 7.1 5.7-8.2 g/dL Albumin 4.3 3.2-4.8 g/dL Urine Color Yellow Yellow Urine Clarity Clear Clear Urine pH 5.5 5.0-9.0 Urine Specific [place] 1.024 1.001-1.035 Urine Protein Negative Negative Urine Ketones Negative Negative Urine Blood Negative Negative /uL Urine Nitrite Negative Negative Urine Bilirubin Negative Negative Urine Urobilinogen 2 H Negative mg/dL Urine Leukocyte Esterase Negative Negative /uL Urine RBC 1 0 - 3 /hpf Urine Microscopic WBC < 1 0-3 /HPF Urine Squamous Epithelial Cells None seen <5 /hpf Urine Bacteria Few H None Seen /hpf Urine Hyaline Casts Few 0 - 2 /lpf Urine Mucus Few None Seen Urine Glucose Normal Normal mg/dL Urine Opiates Screen Neg NEGATIVE Urine Fentanyl Screen Neg NEGATIVE Urine Barbiturates Screen Neg NEGATIVE Urine Phencyclidine Screen Neg NEGATIVE Urine Amphetamines Screen Pos NEGATIVE Urine Benzodiazepines Screen Neg NEGATIVE Urine Cocaine Screen Neg NEGATIVE Urine Cannabinoids Screen Pos NEGATIVE Test 07/14/24 01:16 07/14/24 00:30 07/13/24 23:14 Range/Units Lactic Acid Level 1.9 0.4-2.0 mmol/L Uric Acid 8.5 3.7-9.2 mg/dL Troponin I High Sensitivity 6 </=54 ng/L B-Type Natriuretic Peptide 295.42 0-100 pg/mL Problems(with codes): (1) Left leg cellulitis Plan/Recommendation ASSESSMENT: Patient is a 59-year-old male seen for left foot swelling PLAN: - The patients chart was reviewed, clinical findings were discussed with the patient, the etiologies of the conditions were discussed in detail, and a treatment plan was agreed to at this time, with both oral and written instructions provided. - reviewed imaging - discussed that there is no open wounds on the patient and no areas that could be causing osteomyelitis due to openings - patient may have cellulitis that could be treated with antibiotics - there are superficial blisters on the 4th toe bilaterally - no surgical intervention recommended at this point - patient can be discharged home on p.o. antibiotics All questions were answered and concerns addressed to the patient's satisfaction. The patient was given the phone number to the clinic and was told how to make contact with the clinic should any concerns or questions arise. Patient understands that if any questions or concerns arise prior to the next appointment, we should be contacted immediately. FOLLOW-UP: Patient will follow up with me in 1 week for continued care Plan discussed with: Patient Date of Service: Jul 14, 2024 Billing Provider: KAYLA STEVE DPM Common Visit Codes: CONSULT ONLY Consultation Codes: [id number] CONSULT <80MIN KAYLA STEVE DPM Jul 14, 2024 16:14
[2024-07-14 20:00] VITALS: RESP 18
[2024-07-14] MEDS: predniSONE 20 MG TAB PO ONE (20:45)
[2024-07-14 21:00] VITALS: BP 122/77; PULSE 89; RESP 19; TEMP 97.7; O2SAT 97
[2024-07-15 01:00] VITALS: BP 105/76; PULSE 46; RESP 19; TEMP 98; O2SAT 97
[2024-07-15 05:00] VITALS: BP 106/76; PULSE 78; RESP 19; TEMP 97.7; O2SAT 96
[2024-07-15] MEDS: predniSONE 20 MG TAB PO ONE ×2 (05:45→08:13)
[2024-07-15 06:24] LABS: Basophils # (auto) 0 10 ^3/uL (0-0.2); Basophils % (auto) 0.2 % (0.0-2.0); Eosinophils # (auto) 0 10 ^3/uL (0-0.8); Eosinophils % (auto) 0.1 % (0.0-7.0); Hematocrit 45.6 % (41.0-53.0); Hemoglobin 15.7 g/dL (13.5-17.5); Lymphocytes # (auto) 0.9 10 ^3/uL (0.4-5.4); Lymphocytes % (auto) 7.5 % (10.0-50.0); Mean Corpuscular Hemoglobin 32.1 pg (28.0-32.0); Mean Corpuscular Hgb Conc. 34.5 g/dL (32.0-36.0); Mean Corpuscular Volume 93.1 fL (80.0-100.0); Monocytes # (auto) 0.1 10 ^3/uL (0-1.3); Monocytes % (auto) 0.9 % (0.0-12.0); Neutrophils # (auto) 10.8 10 ^3/uL (1.6-8.6); Neutrophils % (auto) 91.3 % (37.0-80.0); Nucleated Red Blood Cells % 0.1 %; Platelet Count (auto) 227 10^3/uL (140-450); Red Cell Distribution Width 13.9 % (11.8-14.3); White Blood Cell 11.8 10^3/uL (4.4-10.8)
[2024-07-15 06:37] LABS: Chloride 105 mmol/L (98-107); Potassium 4.2 mmol/L (3.5-5.1)
[2024-07-15 06:38] LABS: Anion Gap 7 (5-15); Calcium 9.6 mg/dL (8.7-10.4); Carbon Dioxide 24 mmol/L (20-31)
[2024-07-15 06:43] LABS: BUN/Creatinine Ratio 13.2 (10.0-20.0); Blood Urea Nitrogen 15 mg/dL (9-23); Glucose 153 mg/dL (74-106); Sodium 136 mmol/L (136-145)
--- NOTE | 2024-07-15 07:25 | DVHCONRES ---
Date Seen: Jul 15, 2024 Resident Creating Document: CHARLENE RAINES Jr., MD Referring Physician Bentley Reason for Consultation pvd History of Present Illness 59 y/o M, with a Hx of AFIB w/eliquis use, angina, dilated cardiomyopathy, and BI-V AICD implant, venography, and coronary sinus angiography, presents with c/o left foot pain and redness for 2x days, today. Patient endorses on unprovoked on set of symptoms that have progressively worsening since. He comments on pain extending to all five digits on his left foot and having no relief or improvement with [id number] "CBD ointment" use. Patient reports no recent injuries along with any additional relevant or pertinent information at time of assessment. He denies having any chest pain, shortness of breath, numbness, t ingling, weakness, fever, chills, or other associated symptoms or modifiers at this time. This admission patient states foot has felt better. Arterial duplex demonstrated possible high-grade stenosis of the left common femoral artery. Patient is scheduled this morning for a CTA for further evaluation. Past Medical History AFIB w/eliquis use, angina, dilated cardiomyopathy, and BI-V AICD implant, venography, and coronary sinus angiography, Past Surgical History AICD Family History: FH: COPD (chronic obstructive pulmonary disease) FH: COPD (chronic obstructive pulmonary disease) Hypertension G8 MOTHER G8 FATHER Social History Nonsmoker nondrinker. Allergies: Coded Allergies: Iodine (Verified Allergy, Unknown, swelling, 04/14/24) Home Meds Reported Medications Flaxseed (Linseed) (Flax Oil) Oil, 1 OR DAILY, EA 04/14/24 Metoprolol Succinate (Metoprolol Succinate Er) 25 Mg Tab, 25 MG PO DAILY for 30 Days, MG 02/03/24 Spironolactone (Spironolactone) 25 Mg Tab, 1 TAB PO DAILY, #90 TAB 1 Refill 02/03/24 Furosemide (Furosemide) 40 Mg Tab, 40 MG PO DAILY 02/03/24 Losartan Potassium (Losartan Potassium) 25 Mg Tab, 25 MG PO DAILY for 30 Days, MG 02/03/24 Apixaban Base (ELIQUIS) 5 Mg Tab, 5 MG PO DAILY for prevent blood clots, TAB 02/03/24 Current Medications Current Medications Medications (Trade) Dose Ordered Sig/Eusebio Route PRN Reason Start Time Stop Time Status Last Admin Furosemide (Lasix Tablet) 40 mg DAILY PO 07/14/24 10:00 07/14/24 08:35 Losartan Potassium (Cozaar Tablet) 25 mg DAILY PO 07/14/24 10:00 07/14/24 08:35 Metoprolol Succinate (Toprol Xl) 25 mg DAILY PO 07/14/24 10:00 07/14/24 16:53 DC 07/14/24 08:38 Spironolactone (Aldactone) 25 mg DAILY PO 07/14/24 10:00 07/14/24 08:36 Apixaban (Eliquis) 5 mg BID PO 07/14/24 10:00 07/14/24 20:45 Metoprolol Succinate (Toprol Xl) 50 mg DAILY PO 07/15/24 10:00 Review of Systems Also systems were negative except what is in HPI Vital Signs Vital Signs Date Time Temp Pulse Resp B/P (MAP) Pulse Ox O2 Delivery O2 Flow Rate FiO2 07/15/24 05:00 97.7 78 19 106/76 (86) 96 97.7 07/14/24 20:00 Room Air* 0 21 Physical Exam Head eyes ears nose and throat exam her conjunctiva was pink neck was supple no JVD no lymphadenopathy no carotid bruits lungs clear to auscultation heart was regular rate and rhythm abdomen was soft nontender with no pulsatile abdominal masses or bruits lower extremities got palpable femoral pulse bilaterally weakly palpable pedal pulses bilateral use feet are warm and well perfused there is normal motor sensory. Labs/Diagnostic Data Labs Test 07/15/24 05:58 07/14/24 15:13 07/14/24 08:28 07/14/24 05:12 Range/Units White Blood Count 11.8 H 4.4-10.8 10^3/uL Red Blood Count 4.90 4.5-5.90 10^6/uL Hemoglobin 15.7 13.5-17.5 g/dL Hematocrit 45.6 41.0-53.0 % Mean Corpuscular Volume 93.1 80.0-100.0 fL Mean Corpuscular Hemoglobin 32.1 H 28.0-32.0 pg Mean Corpuscular Hemoglobin Concent 34.5 32.0-36.0 g/dL Red Cell Distribution Width 13.9 11.8-14.3 % Platelet Count 227 140-450 10^3/uL Mean Platelet Volume 8.4 6.9-10.8 fL Neutrophils (%) (Auto) 91.3 H 37.0-80.0 % Lymphocytes (%) (Auto) 7.5 L 10.0-50.0 % Monocytes (%) (Auto) 0.9 0.0-12.0 % Eosinophils (%) (Auto) 0.1 0.0-7.0 % Basophils (%) (Auto) 0.2 0.0-2.0 % Neutrophils # (Auto) 10.8 H 1.6-8.6 10 ^3/uL Lymphocytes # (Auto) 0.9 0.4-5.4 10 ^3/uL Monocytes # (Auto) 0.1 0-1.3 10 ^3/uL Eosinophils # (Auto) 0 0-0.8 10 ^3/uL Basophils # (Auto) 0 0-0.2 10 ^3/uL Nucleated Red Blood Cells 0.1 % Sodium Level 136 136-145 mmol/L Potassium Level 4.2 3.5-5.1 mmol/L Chloride Level 105 98-107 mmol/L Carbon Dioxide Level 24 20-31 mmol/L Anion Gap 7 5-15 Blood Urea Nitrogen 15 9-23 mg/dL Creatinine 1.14 0.700-1.30 mg/dL Glomerular Filtration Rate Calc 74 >90 mL/min BUN/Creatinine Ratio 13.2 10.0-20.0 Serum Glucose 153 H 74-106 mg/dL Calcium Level 9.6 8.7-10.4 mg/dL Prothrombin Time 11.7 9.3-11.8 sec Prothrombin Time INR 1.12 0.9-1.15 Activated Partial Thromboplast Time 29.0 24.5-34.5 SEC Total Bilirubin 1.5 H 0.2-1.0 mg/dL Aspartate Amino Transferase (AST) 35 13-40 U/L Alanine Aminotransferase (ALT) 24 7-40 U/L Alkaline Phosphatase 86 46-116 U/L Total Protein 7.1 5.7-8.2 g/dL Albumin 4.3 3.2-4.8 g/dL Urine Color Yellow Yellow Urine Clarity Clear Clear Urine pH 5.5 5.0-9.0 Urine Specific [place] 1.024 1.001-1.035 Urine Protein Negative Negative Urine Ketones Negative Negative Urine Blood Negative Negative /uL Urine Nitrite Negative Negative Urine Bilirubin Negative Negative Urine Urobilinogen 2 H Negative mg/dL Urine Leukocyte Esterase Negative Negative /uL Urine RBC 1 0 - 3 /hpf Urine Microscopic WBC < 1 0-3 /HPF Urine Squamous Epithelial Cells None seen <5 /hpf Urine Bacteria Few H None Seen /hpf Urine Hyaline Casts Few 0 - 2 /lpf Urine Mucus Few None Seen Urine Glucose Normal Normal mg/dL Urine Opiates Screen Neg NEGATIVE Urine Fentanyl Screen Neg NEGATIVE Urine Barbiturates Screen Neg NEGATIVE Urine Phencyclidine Screen Neg NEGATIVE Urine Amphetamines Screen Pos NEGATIVE Urine Benzodiazepines Screen Neg NEGATIVE Urine Cocaine Screen Neg NEGATIVE Urine Cannabinoids Screen Pos NEGATIVE Test 07/14/24 01:16 07/14/24 00:30 07/13/24 23:14 Range/Units Lactic Acid Level 1.9 0.4-2.0 mmol/L Uric Acid 8.5 3.7-9.2 mg/dL Troponin I High Sensitivity 6 </=54 ng/L B-Type Natriuretic Peptide 295.42 0-100 pg/mL Microbiology Date/Time Source Procedure Growth Status 07/14/24 01:16 Blood Blood Culture - Preliminary NO GROWTH AFTER 24 HOURS OF INCUBATION. Resulted LOWER EXTREMITY ARTERIAL DOPPLER EXAM CLINICAL HISTORY: suspected right PVD TECHNIQUE: Bilateral lower extremity arterial Doppler ultrasound evaluation. COMPARISON: None FINDINGS: There is elevated peak systolic velocity in the right common femoral artery measuring 345 centimeters/second. 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 There are predominantly triphasic waveforms throughout the left lower extremity arteries. There is no focal vessel occlusion. The peak systolic velocities are within normal limits. IMPRESSION: 1. There is likely hemodynamically significant stenosis in the right common femoral artery with elevated peak systolic velocity. Distal to the AUTOMOBILE DEALER stenosis there are monophasic waveforms with decreased peak systolic velocities. Further evaluation with CT angiography is recommended. 2. There is no hemodynamically significant stenosis in the left lower extremity arteries Assessment 59-year-old male was cardiac disease history. bilateral leg pain upon admission. With abnormal arterial duplex study We will obtain a CTA of the abdomen and pelvis bilateral lower extremity runoff this morning. No indication for any emergent surgical procedures at this time we will continue to follow up. Plan/Recommendation 59-year-old male was cardiac disease history. bilateral leg pain upon ad mission. With abnormal arterial duplex study We will obtain a CTA of the abdomen and pelvis bilateral lower extremity runoff this morning. No indication for any emergent surgical procedures at this time we will continue to follow up. Plan discussed with: Patient CHARLENE RAINES Jr., MD Jul 15, 2024 07:25
[2024-07-15] MEDS ORDERED: IOHEXOL 350 MG/ML 100ML IJ ONE (07:58)
[2024-07-15] MEDS: METOPROLOL SUCCINATE XL 50 MG TAB PO SCH (08:14)
[2024-07-15] MEDS: diphenhdrAMINE HCL 25 MG CAP PO ONE (08:14)
[2024-07-15 08:41] VITALS: BP 114/79; PULSE 98; RESP 18; TEMP 97.5; O2SAT 98
--- NOTE | 2024-07-15 09:29 | DVH ---
CT CT ANGIO R LOWER EXT INDICATION: RT ELIGIBILITY SERVICES REPRESENTATIVE STENOSIS EXAM DATE: 07/15/2024 08:58 AM COMPARISON: None RADIATION DOSE: CTDIvol: NA mGy, DLP: NA mGy*cm PROCEDURE: CT angiographic images were obtained of the right lower extremity. Coronal and sagittal re constructions were created. FINDINGS: Common femoral artery: Patent with a short segment dissection flap. Superficial femoral artery: Patent . Profunda artery: Patent . Popliteal artery: Patent . Anterior tibial artery: Patent . Posterior tibial artery: Patent . Peroneal artery: Patent . No focal bone abnormality is demonstrated. Regional muscle and subcutaneous tissues appear normal. IMPRESSION: Patent right common femoral artery with a short segment dissection flap. Critical Result: dissection Findings discussed with maldonado estrella at 07/15/2024 09:20 AM and acknowledged receipt and understanding of the findings.
[2024-07-15 10:07] LABS: Anti-Centromere B Antibody <0.2 AI (0.0-0.9); Anti-Jo-1 Antibody <0.2 AI (0.0-0.9); Anti-dsDNA Antibody 3 IU/mL (0-9); Antichromatin Antibody <0.2 AI (0.0-0.9); Antiscleroderma-70 Antibody <0.2 AI (0.0-0.9); RNP Antibody <0.2 AI (0.0-0.9); Sjogren's Anti-SS-A Antibody <0.2 AI (0.0-0.9); Sjogren's Anti-SS-B Antibody <0.2 AI (0.0-0.9); Smith Antibody <0.2 AI (0.0-0.9)
[2024-07-15 11:42] LABS: Erythrocyte Sedimentation Rate 6 mm/hr (0-20)
[2024-07-15 13:00] VITALS: BP 113/71; PULSE 90; RESP 18; TEMP 97.7; O2SAT 98
[2024-07-15] MEDS: ceFAZolin 1GM/50ML 50 ML IV SCH (15:02)
[2024-07-15 16:41] VITALS: BP 111/77; PULSE 62; RESP 17; TEMP 98; O2SAT 97
[2024-07-15] MEDS ORDERED: LOSA-533 PO (17:28)
[2024-07-15] MEDS ORDERED: APIX5TAB PO (17:28)
[2024-07-15] MEDS ORDERED: AUG875T PO (17:28)
[2024-07-15] MEDS ORDERED: FURO40TA4 PO (17:28)
[2024-07-15] MEDS ORDERED: METO-289 PO (17:28)
[2024-07-15] MEDS ORDERED: SPIR25TA8 PO (17:28)
[2024-07-15 18:18] VITALS: BP 114/79; PULSE 98; TEMP 36.7
--- NOTE | 2024-07-15 21:35 | DVHDSRES ---
Discharge Summary Date of Admission Resident Creating Document: CHARLENE RAINES Jr., MD Jul 14, 2024 at 04:09 Date of Discharge: Jul 15, 2024 Admitting Diagnosis Left foot osteomyelitis Leukocytosis Acute kidney injury Sirs History of AFib Secondary coagulopathy Wounds: none Labs/Diagnostic Data: Laboratory Results Test 07/15/24 14:49 07/15/24 05:58 07/14/24 15:13 07/14/24 08:28 White Blood Count 11.8 10^3/uL (4.4-10.8) Red Blood Count 4.90 10^6/uL (4.5-5.90) Hemoglobin 15.7 g/dL (13.5-17.5) Hematocrit 45.6 % (41.0-53.0) Mean Corpuscular Volume 93.1 fL (80.0-100.0) Mean Corpuscular Hemoglobin 32.1 pg (28.0-32.0) Mean Corpuscular Hemoglobin Concent 34.5 g/dL (32.0-36.0) Red Cell Distribution Width 13.9 % (11.8-14.3) Platelet Count 227 10^3/uL (140-450) Mean Platelet Volume 8.4 fL (6.9-10.8) Neutrophils (%) (Auto) 91.3 % (37.0-80.0) Lymphocytes (%) (Auto) 7.5 % (10.0-50.0) Monocytes (%) (Auto) 0.9 % (0.0-12.0) Eosinophils (%) (Auto) 0.1 % (0.0-7.0) Basophils (%) (Auto) 0.2 % (0.0-2.0) Neutrophils # (Auto) 10.8 10 ^3/uL (1.6-8.6) Lymphocytes # (Auto) 0.9 10 ^3/uL (0.4-5.4) Monocytes # (Auto) 0.1 10 ^3/uL (0-1.3) Eosinophils # (Auto) 0 10 ^3/uL (0-0.8) Basophils # (Auto) 0 10 ^3/uL (0-0.2) Nucleated Red Blood Cells 0.1 % Erythrocyte Sedimentation Rate 6 mm/hr (0-20) Sodium Level 136 mmol/L (136-145) Potassium Level 4.2 mmol/L (3.5-5.1) Chloride Level 105 mmol/L (98-107) Carbon Dioxide Level 24 mmol/L (20-31) Anion Gap 7 (5-15) Blood Urea Nitrogen 15 mg/dL (9-23) Creatinine 1.14 mg/dL (0.700-1.30) Glomerular Filtration Rate Calc 74 mL/min (>90) BUN/Creatinine Ratio 13.2 (10.0-20.0) Serum Glucose 153 mg/dL (74-106) Hemoglobin A1c 6.0 % A1C (<5.7) Calcium Level 9.6 mg/dL (8.7-10.4) Thyroid Stimulating Hormone (TSH) 0.28 uIU/mL (0.55-4.78) Anti-Nuclear Antibody Comment Comment (.) MARLEY-1 Antibody <0.2 AI (0.0-0.9) SS-A/Ro Antibody <0.2 AI (0.0-0.9) SS-B/La Antibody <0.2 AI (0.0-0.9) Sm Antibody <0.2 AI (0.0-0.9) [employer] MECH[employer]IC Antibody <0.2 AI (0.0-0.9) Scl-70 (Scleroderma) Antibody <0.2 AI (0.0-0.9) Anti-Double Strand DNA Antibody 3 IU/mL (0-9) Chromatin Antibody <0.2 AI (0.0-0.9) Centromere B Antibody <0.2 AI (0.0-0.9) Prothrombin Time 11.7 sec (9.3-11.8) Prothrombin Time INR 1.12 (0.9-1.15) Activated Partial Thromboplast Time 29.0 SEC (24.5-34.5) Total Bilirubin 1.5 mg/dL (0.2-1.0) Aspartate Amino Transferase (AST) 35 U/L (13-40) Alanine Aminotransferase (ALT) 24 U/L (7-40) Alkaline Phosphatase 86 U/L (46-116) Total Protein 7.1 g/dL (5.7-8.2) Albumin 4.3 g/dL (3.2-4.8) Test 07/14/24 05:12 07/14/24 01:16 07/14/24 00:30 07/13/24 23:14 Urine Color Yellow (Yellow) Urine Clarity Clear (Clear) Urine pH 5.5 (5.0-9.0) Urine Specific [place] 1.024 (1.001-1.035) Urine Protein Negative (Negative) Urine Ketones Negative (Negative) Urine Blood Negative /uL (Negative) Urine Nitrite Negative (Negative) Urine Bilirubin Negative (Negative) Urine Urobilinogen 2 mg/dL (Negative) Urine Leukocyte Esterase Negative /uL (Negative) Urine RBC 1 /hpf (0 - 3) Urine Microscopic WBC < 1 /HPF (0-3) Urine Squamous Epithelial Cells None seen /hpf (<5) Urine Bacteria Few /hpf (None Seen) Urine Hyaline Casts Few /lpf (0 - 2) Urine Mucus Few (None Seen) Urine Glucose Normal mg/dL (Normal) Urine Opiates Screen Neg (NEGATIVE) Urine Fentanyl Screen Neg (NEGATIVE) Urine Barbiturates Screen Neg (NEGATIVE) Urine Phencyclidine Screen Neg (NEGATIVE) Urine Amphetamines Screen Pos (NEGATIVE) Urine Benzodiazepines Screen Neg (NEGATIVE) Urine Cocaine Screen Neg (NEGATIVE) Urine Cannabinoids Screen Pos (NEGATIVE) Lactic Acid Level 1.9 mmol/L (0.4-2.0) Uric Acid 8.5 mg/dL (3.7-9.2) Troponin I High Sensitivity 6 ng/L (</=54) B-Type Natriuretic Peptide 295.42 pg/mL (0-100) Other Laboratory Tests 07/15/24 05:58 Brief Hx & Hospital Course: Patient is a 59-year-old male with a past with a history of atrial fibrillation, congestive heart failure, hypertension came to the ED with a chief complaint of bilateral feet pain and swelling. Patient reported that about 3 days ago he was apparently well when he went out in the pool with a to his friend's house walking with shows on hand when he came back to his house his feet were really cold, and he had pain in the toes but noted no discoloration. Patient tried to warm up the feet but he still had pain. The pain gradually increased to with the last 2 days and yesterday he came to the hospital further evaluation. Patient reports that before coming to the hospital left foot was swollen and red more than the right. Patient denied trauma, insect bites, walking barefoot in the cold. He reports similar episode he had bilateral feet pain in the cold about 2 years ago in the [place] which on its own. Patient denies any pain in the hands. Patient denies chest pain, shortness of breath, palpitations, headache, blurry vision, speech difficulty or eating difficulties, motor weakness. Past medical history: Atrial fibrillation, congestive heart failure, ?congenital heart disease, hypertension Past surgical history: Biventricular AICD in 2023, coronary angiography Social history: Patient lives at home but currently denied smoking, alcohol, drug use. Home medications: Metoprolol succinate q.d., furosemide 40 mg q.d., losartan 25 mg, spironolactone 25 mg, Eliquis 5 mg b.i.d. Brief hospital course Patient came to the hospital with a chief complaint of bilateral foot pain right more than the left with redness and swelling of the right foot seen on examination. Suspecting peripheral vascular disease as the patient is right dorsalis pedal artery was not palpable, bilateral lower extremity arterial duplex was done which showed stenosis in the right common femoral artery. Vascular surgery were consulted who recommended getting a CT angiogram done which showed dissection of the small segment of the right common femoral artery. Vascular surgery recommended no further intervention. Patient had elevated white counts and the swelling responded to IV antibiotic in the hospital following which the patient was discharged oral Augmentin for 7 days. Discharge plan Medications: Augmentin 875 mg b.i.d. for 7 days, home medications renewed Follow up in the discharge clinic in 1 week Consults/Reason for consult Vascular surgery consultation d/t ?right [employer]MENT [employer]UFA[employer]URING SUPERVISOR stenosis Operations or Procedures Left foot Xray IMPRESSION: No acute fracture or dislocation. There is stable mild cortical erosion along the 2nd digit distal phalanx with irregularity of the middle phalanx distal aspect as well. No soft tissue gas. Findings may represent osteomyelitis. Bilateral lower extremity arterial duplex FINDINGS: There is elevated peak systolic velocity in the right common femoral artery measuring 345 centimeters/second. There are monophasic waveforms with decreased peak systolic velocities in the vessels distal to the right [employer]MENT [employer]UFACTURING SUPERVISOR. There are predominantly triphasic waveforms throughout the left lower extremity arteries. There is no focal vessel occlusion. The peak systolic velocities are within normal limits. IMPRESSION: 1. There is likely hemodynamically significant stenosis in the right common femoral artery with elevated peak systolic velocity. Distal to the [employer]MENT [employer]CTURING SUPERVISOR stenosis there are monophasic waveforms with decreased peak systolic velocities. Further evaluation with CT angiography is recommended. 2. There is no hemodynamically significant stenosis in the left lower extremity arteries CT angio right lower extremity FINDINGS: Common femoral artery: Patent with a short segment dissection flap. Superficial femoral artery: Patent . Profunda artery: Patent . Popliteal artery: Patent . Anterior tibial artery: Patent . Posterior tibial artery: Patent . Peroneal artery: Patent . No focal bone abnormality is demonstrated. Regional muscle and subcutaneous tissues appear normal. IMPRESSION: Patent right common femoral artery with a short segment dissection flap. Critical Result: dissection Condition at Discharge: Good Final Diagnosis/Problems List Right foot pain likely d/t PAD ?Frostbite ? Raynaud phenomenon ? 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 Patient was counseled about treatment plan, medications, possible side effects, patientverbalized understanding. All questions were answered to the best of my ability. This discharge took greater then 30 minutes in planning, reviewing documentation, counseling the patient, and discussing with other team members." ASSESSMENT ASSESSMENT Assessment Right foot pain likely d/t PAD ?Frostbite ? Raynaud phenomenon ? 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
--- NOTE | 2024-07-16 10:24 | ECG ---
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
== END 2024-07-15 18:56 | disposition home or self-care (01) | DRG 197 ==
LOC: ER 21:42 → OVERFLOW 07-14 04:09 → WEST WING 07-14 15:30
PROVIDERS: ADMIT Student in an Organized Health Care Education/Training Program; ATTEND Student in an Organized Health Care Education/Training Program
DX: I73.89 Other specified peripheral vascular diseases (principal); N17.0 Acute kidney failure with tubular necrosis; R65.11 Systemic inflammatory response syndrome (SIRS) of non-infectious origin with acute organ dysfunction; D68.9 Coagulation defect, unspecified; I13.0 Hypertensive heart and chronic kidney disease with heart failure and stage 1 through stage 4 chronic kidney disease, or unspecified chronic kidney disease; R65.10 Systemic inflammatory response syndrome (SIRS) of non-infectious origin without acute organ dysfunction; L03.116 Cellulitis of left lower limb; I50.32 Chronic diastolic (congestive) heart failure; I48.91 Unspecified atrial fibrillation; N18.9 Chronic kidney disease, unspecified; I73.00 Raynaud's syndrome without gangrene; Z88.5 Allergy status to narcotic agent; Z82.5 Family history of asthma and other chronic lower respiratory diseases; Z82.49 Family history of ischemic heart disease and other diseases of the circulatory system; X31.XXXA Exposure to excessive natural cold, initial encounter
CPT/HCPCS: 36415; 71045; 73630; 73706; 80048; 80053; 80307; 81001; 83036; 83516; 83520; 83605; 83880; 84443; 84484; 84550; 85025; 85610; 85652; 85730; 86225; 86235; 86256; 87040; 93005; 93925; 93970; G0378; J0692; J2543